=== PATIENT | female | born 1995 | race Caucasian/White ===

== ENCOUNTER → 2022-03-02 | Outpatient (CLI) | payer OTHER, SELFPAY | LOC: M RAD 10:52 | PROVIDERS: ATTEND Nurse Practitioner Family | DX: R94.6 Abnormal results of thyroid function studies (principal) ==

== ENCOUNTER 2022-04-07 12:26 | Emergency (ER) | payer OTHER ==
[~2022-04-07] VITALS: Ht 162.6 cm; Wt 77.2 kg
[2022-04-07 19:48] LABS: BASO % 0.3 % (0.0-1.0); EOS # 0.2 10^3/uL (0.0-0.5); EOS % 1.7 % (0.0-3.0); HEMATOCRIT 45.5 % (36.0-47.0); HEMOGLOBIN 15.6 g/dl (12.0-15.5); LYMPH # 2.6 10^3/uL (1.5-5.0); LYMPH % 29.2 % (24.0-44.0); MEAN CORPUSCULAR HEMOGLOBIN 31.6 pg (27.0-33.0); MEAN CORPUSCULAR HGB CONC 34.3 g/dl (32.0-36.5); MEAN CORPUSCULAR VOLUME 92.1 fl (80.0-96.0); MONO # 0.8 10^3/uL (0.0-0.8); MONO % 8.5 % (2.0-8.0); NEUTROPHILS # 5.2 10^3/uL (1.5-8.5); NEUTROPHILS % 59.6 % (36.0-66.0); PLATELET COUNT, AUTOMATED 176 10^3/uL (150-450); RED BLOOD COUNT 4.94 10^6/uL (4.00-5.40); WHITE BLOOD COUNT 8.8 10^3/uL (4.0-10.0)
[2022-04-07 19:50] VITALS: BP 115/74
== END 2022-04-07 19:52 | disposition home or self-care (01) ==
LOC: M ED 12:26
DX: F07.81 Postconcussional syndrome (principal); M54.2 Cervicalgia; M25.511 Pain in right shoulder; R00.1 Bradycardia, unspecified; I49.9 Cardiac arrhythmia, unspecified; V47.5XXA Car driver injured in collision with fixed or stationary object in traffic accident, initial encounter

== ENCOUNTER → 2022-04-20 | Outpatient (CLI) | payer OTHER, MEDICAID | LOC: M OUTALCOH 09:36 | PROVIDERS: ATTEND Psychiatry & Neurology Psychiatry | DX: Z02.9 Encounter for administrative examinations, unspecified (principal) ==

== ENCOUNTER → 2022-05-06 | Outpatient (RCR) | payer OTHER, MEDICAID | LOC: M OUTALCOH 04-20 09:00 | PROVIDERS: ATTEND Psychiatry & Neurology Psychiatry | DX: F10.10 Alcohol abuse, uncomplicated (principal); F17.200 Nicotine dependence, unspecified, uncomplicated ==

== ENCOUNTER 2022-05-14 10:00 | Outpatient (RCR) | payer OTHER, MEDICAID | END 2022-06-06 | LOC: M OUTALCOH 10:00 | PROVIDERS: ATTEND Psychiatry & Neurology Psychiatry | DX: F10.10 Alcohol abuse, uncomplicated (principal); F17.200 Nicotine dependence, unspecified, uncomplicated ==